=== PATIENT | female | born 1955 | race Caucasian/White ===

== ENCOUNTER 2022-05-15 17:33 | Inpatient (IN) | payer MEDICARE, OTHER ==
[~2022-05-15] VITALS: Ht 160 cm; Wt 87.6 kg
--- NOTE | 2022-05-15 22:00 | NUR ---
PT ARRIVED TO ROOM AROUND 2100 VIA EMS TRANSPORT DIRECT ADMIT. ON LASIX GTT. PT ALERT AND ORIENTED TO SELF BUT IS FORGETFUL NEEDS REMINDERS AND DAUGHTER CUBA AT BEDSIDE REPORTS THIS IS PT BASELINE POST CVA. PT LABORED BREATHING WITH EXPIRATORY WHEEZING AND REPORTING AIRWAYS FEEL TIGHT. NOTIFIED DR. NOBLE AND DR. GARNER WHO PUT IN ORDERS FOR BREATHING TREATMENTS SEE MAR. PT HAS TWO OPEN PRESSURE SORES THAT WERE PRESENT PRE-HOSPITAL ADMISSION BOTH APPEAR TO BE STAGE 2. WOUND CONSULT ORDERED. PT BROKE HER RIGHT UPPER ARM AND HAD SURGICAL REPAIR TO THIS ARM. IT IS PAINFUL WITH MOVEMENT AND SHE CAN NOT TOLERAT BP CUFF OR TOURNIQUETS TO RIGHT UP ARM AT ALL. PT ALSO RECENTLY HAD ABDOMINAL SURGERY HAS MIDLINE SCAR WITH ONE SMALL SCAB LEFT IN UMBILICAL REGION THAT IS DRY. PT AND DAUGHTER ORIENTED TO ROOM AND CALL LIGHT. NO QUESTIONS OR CONCERNS. DOCTOR AIDE AND DR. GARNER CAME AND EVALUATED PT AT BEDSIDE. WILL CONTINUE MONITOR.
[2022-05-15 22:16] LABS: BASOPHILS ABSOLUTE AUTO 0.02 K/mm3 (0.00-0.23); BASOPHILS PERCENT AUTO 1 % (0-2); EOSINOPHILS ABSOLUTE AUTO 0.06 K/mm3 (0.00-0.68); EOSINOPHILS PERCENT AUTO 1 % (0-6); Hematocrit 27.1 % (33.0-51.0); Hemoglobin 9.2 g/dL (11.5-16.0); IMMATURE GRAN ABSOLUTE AUTO 0.01 K/mm3 (0.00-0.10); IMMATURE GRAN PERCENT AUTO 0 % (0-1); LYMPHOCYTES ABSOLUTE AUTO 0.74 K/mm3 (0.84-5.20); LYMPHOCYTES PERCENT AUTO 17 % (21-46); MONOCYTES ABSOLUTE AUTO 0.36 K/mm3 (0.16-1.47); MONOCYTES PERCENT AUTO 8 % (4-13); Mean Corpuscular HGB 32.1 pg (26.0-34.0); Mean Corpuscular HGB Conc 33.9 g/dL (31.5-36.5); Mean Corpuscular Volume 94 fL (80-100); Mean Platelet Volume 8.6 fL (9.1-12.4); NEUTROPHILS ABSOLUTE AUTO 3.12 K/mm3 (1.96-9.15); NEUTROPHILS PERCENT AUTO 72 % (41-73); Platelet Count 237 K/mm3 (150-400); RDW Coefficient Variation 16.3 % (11.7-14.2); Red Blood Cell Count 2.87 M/mm3 (3.80-5.20); White Blood Cell Count 4.31 K/mm3 (4.00-11.30)
[2022-05-15] MEDS ORDERED: AMLO10 PO (22:20)
[2022-05-15] MEDS ORDERED: Aspir 8181 MG PO (22:21)
[2022-05-15] MEDS ORDERED: ZEBUTAL 50-3251 EAC1 PO (22:22)
[2022-05-15] MEDS ORDERED: CALC.25 PO (22:24)
[2022-05-15] MEDS ORDERED: Calcium Carbon500 MG PO (22:26)
[2022-05-15] MEDS ORDERED: CARV25 PO (22:28)
[2022-05-15] MEDS ORDERED: CARB200 PO (22:28)
[2022-05-15] MEDS ORDERED: CELEXA40 M1 PO (22:29)
[2022-05-15] MEDS ORDERED: CHLO25B PO (22:29)
[2022-05-15] MEDS ORDERED: CATAPRES-TTS 11 EAC1 TOP (22:30)
[2022-05-15] MEDS ORDERED: CARDURA2 M1 PO (22:32)
[2022-05-15] MEDS ORDERED: VOLTAREN ARTHRI20 GM (22:32)
[2022-05-15] MEDS ORDERED: TRULICITY0.75 MG/01 (22:33)
[2022-05-15 22:34] LABS: Albumin, Blood 2.6 g/dL (3.4-5.0); Anion Gap 14 mmol/L (6-16); Blood Urea Nitrogen 90 mg/dL (8-24); Bun/Creatinine Ratio 23.5 (12.0-20.0); CO2, Blood 19 mmol/L (21-32); Calcium, Blood 9.4 mg/dL (8.5-10.1); Chloride, Blood 103 mmol/L (98-108); Creatinine, Blood 3.83 mg/dL (0.40-1.00); Glomerular Filtration Rate 12 (60-); Glucose, Blood 117 mg/dL (70-99); Phosphorus, Blood 7.1 mg/dL (2.5-4.9); Potassium, Blood 3.7 mmol/L (3.5-5.5); Sodium, Blood 136 mmol/L (136-145)
[2022-05-15] MEDS ORDERED: [UNRECOGNIZED DRUG - CODE] SC (22:34)
[2022-05-15] MEDS ORDERED: FLUT.05NI (22:35)
[2022-05-15] MEDS ORDERED: FURO80 PO (22:38)
[2022-05-15] MEDS ORDERED: SENNA LAXATIVE8.6 MG PO (22:40)
[2022-05-15] MEDS ORDERED: HYDR100 PO (22:40)
[2022-05-15] MEDS ORDERED: Hair, Skin & N1 EACH PO (22:42)
[2022-05-15] MEDS ORDERED: ISOSORBIDE MONO10 MG PO (22:42)
[2022-05-15] MEDS ORDERED: Percocet 5-3251 EACH PO (22:43)
[2022-05-15] MEDS ORDERED: ONDA4 PO (22:43)
[2022-05-15] MEDS ORDERED: MIRALAX17 GM PO (22:44)
[2022-05-15] MEDS ORDERED: ZOCOR20 MG PO (22:44)
[2022-05-16 02:23] LABS: Source, Urine Clean Catch
[2022-05-16 02:52] LABS: Appearance, Urine Cloudy (Clear); Bilirubin, Urine Neg (Neg); Blood, Urine 5+ (Neg); Glucose Qualitative, Urine Neg (Neg); Ketones, Urine 1+ (Neg); Leukocyte Esterase, Urine 3+ (Neg); Nitrite, Urine Pos (Neg); Protein, Urine 4+ (Neg); Specific Gravity, Urine 1.015 (1.003-1.022); Urobilinogen, Urine NORM (Normal)
[2022-05-16 03:26] LABS: Color, Urine Red (P-Yellow)
[2022-05-16 03:27] LABS: Bacteria Many /hpf; Red Blood Cells, Urine 50-100 /hpf (0-2); Squamous Epithelial Cells Few /hpf (Few)
[2022-05-16 03:28] LABS: Amorphous Light (0-Heavy)
[2022-05-16 03:54] LABS: Hematocrit 24.6 % (33.0-51.0); Hemoglobin 8.2 g/dL (11.5-16.0); Mean Corpuscular HGB 31.2 pg (26.0-34.0); Mean Corpuscular HGB Conc 33.3 g/dL (31.5-36.5); Mean Corpuscular Volume 94 fL (80-100); Platelet Count 249 K/mm3 (150-400); RDW Coefficient Variation 16.2 % (11.7-14.2); RDW Standard Deviation 55.8 fL (35.1-46.3); Red Blood Cell Count 2.63 M/mm3 (3.80-5.20); White Blood Cell Count 4.19 K/mm3 (4.00-11.30)
[2022-05-16 04:11] LABS: Albumin, Blood 2.6 g/dL (3.4-5.0); Anion Gap 12 mmol/L (6-16); Blood Urea Nitrogen 92 mg/dL (8-24); Bun/Creatinine Ratio 23.8 (12.0-20.0); CO2, Blood 22 mmol/L (21-32); Calcium, Blood 9.1 mg/dL (8.5-10.1); Chloride, Blood 103 mmol/L (98-108); Creatinine, Blood 3.87 mg/dL (0.40-1.00); Glomerular Filtration Rate 12 (60-); Glucose, Blood 102 mg/dL (70-99); Phosphorus, Blood 7.1 mg/dL (2.5-4.9); Potassium, Blood 3.7 mmol/L (3.5-5.5); Sodium, Blood 137 mmol/L (136-145)
--- NOTE | 2022-05-16 05:20 | NUR ---
END OF SHIFT SUMMARY NEW ADMIT AT 2100 FROM [facility]. HERE FOR DIALYSIS NEPHROLOGY CONSULTED FOR THIS THIS MORNING. PT CAME ON LASIX GTT BUT THAT WAS DISCONTINUED AND JUST IV PUSH LASIX ORDERED. MANZO REPLACED AND UA SENT. MIDLINE WAS ATTEMPTED BUT NOT SUCCESSFUL. PT HAS TWO PIV IN LEFT ARM. PT HAS PAIN DUE TO BREAK AND SURGERY TO RIGHT UP ARM SO NO TOURNIQUETS OR BP CUFF TO RIGHT UPPER ARM. PT IS ALERT SHE IS ORIENTED TO SELF THE YEAR FAMILY AND FOLLOWING BUT DAUGHTER REPORTS SHE IF FORGETFUL AND NEEDS FREQUENT REMINDERS. WILL CONTINUE TO MONITOR. WILL GIVE BEDSIDE REPORT TO ONCOMING RN.
--- NOTE | 2022-05-16 08:00 | NUR ---
ASSUMED CARE PT IS ALERT AND ORIENTED X4. DAUGHTER AT BEDSIDE DISCUSSING WITH DR. JONES ABOUT CAREPLAN. SPO2 >92% ON 2L NC; MAP >65 W/ SBP IN THE 160-170'S. ALBUMIN AND LASIX RUNNING. PT HAS WHEEZES HEARD AFTER LYING PT DOWN FOR BOOST. MANZO CATHETER PATENT AND DRAINING TO GRAVITY. PT'S RIGHT ARM IS FRAGILE AND PAINFUL WITH ANY STIMULATION D/T RECENT HUMERUS FX CORRECTION. POSSIBLE SMALL MURMUR AUSCULTATED OVER PULMONIC/HERBS/TRICUSPID.
[2022-05-16 10:57] LABS: Creatine Kinase MB 2.3 ng/mL (0.0-3.6); Creatine Kinase MB Index 7.2 (0.0-4.0); Percent Saturation 32.9 % (15.0-50.0)
--- NOTE | 2022-05-16 18:09 | NUR ---
SHIFT SUMMARY A/OX3, FORGETFUL. CURRENTLY ON 2L VIA NC, CONT BIOX IN PLACE WITH SATS GREATER THAN 92. 2P ASSIST FOR REPOSITIONING. PG TO JAQUELINE. C/O PAIN TO BOTTOM, MEDICATED PER EMAR X1. MANZO CATH PATENT AND DRAINING TO GRAVITY. TELE SR 60-70S. VSS, NO ACUTE CHANGES AT THIS TIME. BED IN LOWEST POSITION WITH CALL LIGHT IN REACH. WILL CONTINUE TO MONITOR AND REPORT TO ONCOMING RN.
[2022-05-17 06:10] LABS: International Normalized Ratio 1.04; Prothrombin Time Results 10.9 Sec (9.7-11.5)
--- NOTE | 2022-05-17 06:31 | NUR ---
SHIFT SUMMARY - NO ACUTE CHANGES THROUGHOUT THE NIGHT. DAUGHTER SLEPT OVER LAST NOC - VERY SUPPORTIVE OF HER MOTHER. PT DID WAKE UP WITH SOB/ANXIETY - DAUGHTER INSTRUCTING HER ON CALMING TECHNIQUES. PT WORE HER CPAP THROUGHOUT MOST OF THE NIGHT - PT PREFERS THE CPAP TO NC OXYGEN. PT MEDICATED X1 WITH ULTRAM FOR BACK PAIN WITH GOOD RELIEF. PT HAS SLEPT THROUGHOUT MOST OF THE NIGHT. EDUCATED ON DR, CONSULT FOR DIALYSIS PLACEMENT TO PT AND DAUGHTER - VERBALIZED UNDERSTANDING. PT'S SKIN COLOR IS PALE, VSS - SEE VITALS. MEDICATED X1 WITH HYDRALAZINE IV - SEE VS FOR FOLLOW UP. CALL LIGHT WITHIN REACH. BED IN LOW POSITION. PT NPO FOR ANTICIPATED DIALYSIS CATHETER PLACEMENT TODAY. WILL CONTINUE TO MONITOR UNTIL AM SHIFT CHANGE.
[2022-05-17 09:11] LABS: Hemoglobin 8.1 g/dL (11.5-16.0); Mean Corpuscular HGB 31.8 pg (26.0-34.0); Mean Corpuscular HGB Conc 33.8 g/dL (31.5-36.5); Mean Corpuscular Volume 94 fL (80-100); Mean Platelet Volume 9.4 fL (9.1-12.4); Platelet Count 243 K/mm3 (150-400); RDW Coefficient Variation 16.5 % (11.7-14.2); RDW Standard Deviation 56.7 fL (35.1-46.3); Red Blood Cell Count 2.55 M/mm3 (3.80-5.20); White Blood Cell Count 5.29 K/mm3 (4.00-11.30)
[2022-05-17 09:34] LABS: Albumin, Blood 3.1 g/dL (3.4-5.0); Anion Gap 14 mmol/L (6-16); Blood Urea Nitrogen 91 mg/dL (8-24); Bun/Creatinine Ratio 23.4 (12.0-20.0); CO2, Blood 22 mmol/L (21-32); Calcium, Blood 9.3 mg/dL (8.5-10.1); Chloride, Blood 102 mmol/L (98-108); Creatinine, Blood 3.89 mg/dL (0.40-1.00); Glomerular Filtration Rate 12 (60-); Glucose, Blood 115 mg/dL (70-99); Phosphorus, Blood 7.1 mg/dL (2.5-4.9); Potassium, Blood 3.7 mmol/L (3.5-5.5); Sodium, Blood 138 mmol/L (136-145)
--- NOTE | 2022-05-17 19:47 | NUR ---
END OF SHIFT SUMMARY: PATIENT SHOWED IMPROVEMENT IN HER MENTATION, COMFORT, AND BREATHING THROUGHOUT THE SHIFT. PATIENT ENDED THE SHIFT RESTED, SITTING UP IN BED, AND ENGAGING WITH THE RN AND FAMILY. PATIENT REPORTED IMPROVEMENT IN HER SHOULDER, BACK AND CHEST PAIN AFTER SOME REST AND USE OF THE HEATING PAD. PATIENT DENIED NEED FOR PRN MEDICATIONS RELATED TO PAIN CONTROL. PATIENT STARTED THE SHIFT RELYING ON HER CPAP (WITH 4L BLEED IN) TO HELP WITH HER BREATHING COMFORT (SPO2 90-93%). BY THE END OF THE SHIFT, PATIENT WAS SITTING UP IN BED EATING DINNER ON 4L VIA NC (SPO2 94-96%). PATIENT REPORTED INCREASED COMFORT WITH BREATHING. PATIENT HAD A URINE OUTPUT OF DARK CARTER URINE OF 675 ML DURING THE DAY SHIFT. EDEMA REMAINED UNCHANGED IN ANKLES AND LEGS. PATIENT STARTED THE SHIFT HIGHLY ANXIOUS ABOUT HER STAY IN THE HOSPITAL, PLAN OF CARE AND BREATHING. MEDICATED ONE TIME WITH PRN ATIVAN. PATIENT WAS ABLE TO GET A LONG NAP THIS AFTERNOON. BY THE EVENING, PATIENT WAS RELAXED AND CALMLY TALKING WITH THE RN. PATIENT UNDERSTANDING OF NEED TO PUSH THE PERMA-CATH PLACEMENT TO TOMORROW. DAUGHTER CUBA AND PATIENT'S BROTHER AT THE BEDSIDE MUCH OF THE DAY.
--- NOTE | 2022-05-18 05:32 | NUR ---
PATIENT WAS VERY ANXIOUS AROUND HS. SHE BEGAN HYPERVENTILATING, THEN SITTING UP AND ROCKING FORWARD IN HER BED BECAUSE SHE THOUGHT SHE WASN'T GETTING ANY AIR. RT WAS CALLED WHO ADJUSTED HER CPAP AND INCREASED HER O2 THAT WAS BLENDED INTO THE MACHINE. 0.5MG ATIVAN WAS GIVEN WITH HER TRAMADOL FOR RIGHT UPPER ARM AND SHOULDER PAIN. ALL EFFORTS WORKED TO RESOLVE THE PROBLEM, AND THE PATIENT SLEPT WELL SHORTLY AFTER. DAUGHTER IS IN THE ROOM WITH [employer], AND IS VERY HELPFUL AND SUPPORTIVE. PATIENT HAS BEEN NPO SINCE BEFORE 2400 IN ANTICIPATION OF HER DIALYSIS CATH PLACEMENT.
[2022-05-18 06:06] LABS: Albumin, Blood 3.2 g/dL (3.4-5.0); Anion Gap 13 mmol/L (6-16); Blood Urea Nitrogen 94 mg/dL (8-24); Bun/Creatinine Ratio 24.4 (12.0-20.0); CO2, Blood 22 mmol/L (21-32); Calcium, Blood 9.2 mg/dL (8.5-10.1); Chloride, Blood 102 mmol/L (98-108); Creatinine, Blood 3.85 mg/dL (0.40-1.00); Glomerular Filtration Rate 12 (60-); Glucose, Blood 126 mg/dL (70-99); Phosphorus, Blood 7.2 mg/dL (2.5-4.9); Potassium, Blood 3.7 mmol/L (3.5-5.5); Sodium, Blood 137 mmol/L (136-145)
[2022-05-18 08:57] LABS: SARS-Cov-2 (COVID-19) PCR, MMC NEGATIVE (NEGATIVE)
[2022-05-18 14:12] LABS: A/G RATIO 1.3 (0.7-1.7); ALPHA-1-GLOBULIN 0.4 g/dL (0.0-0.4); ALPHA-2-GLOBULIN 0.7 g/dL (0.4-1.0); BETA GLOBULIN 0.6 g/dL (0.7-1.3); GAMMA GLOBULIN 0.7 g/dL (0.4-1.8); GLOBULIN, TOTAL 2.3 g/dL (2.2-3.9); M-SPIKE Not Observed g/dL (Not Observed); PROTEIN, TOTAL, SERUM 5.3 g/dL (6.0-8.5)
--- NOTE | 2022-05-18 16:02 | NUR ---
SHIFT SUMMARY PT ALERT AND ORIENTED, CALLS APPROPRIATELY. PT DOWN FOR DIALYSIS CATHETER PLACEMENT TODAY. PLACED TO RCW. PT COMPLETED FIRST ROUND OF HD TODAY FOR 2 HOURS. PT TOLERATED PROCEDURE, 1500ML REMOVED. SCHEDULED FOR HD TOMORROW WELL. PT ALTERNATING BETWEEN CPAP AND NASAL CANULA DURING SHIFT. NO C/O PAIN, MEDICATED FOR ANXIETY X [address] MANZO [address], SMALL AMOUNT OF ELISA URINE IN BAG. NO NEEDS VOICED AT THIS TIME. CALL LIGHT WITHIN REACH.
[2022-05-19 06:44] LABS: Albumin, Blood 2.7 g/dL (3.4-5.0); Anion Gap 11 mmol/L (6-16); Blood Urea Nitrogen 59 mg/dL (8-24); Bun/Creatinine Ratio 21.5 (12.0-20.0); CO2, Blood 27 mmol/L (21-32); Chloride, Blood 100 mmol/L (98-108); Creatinine, Blood 2.74 mg/dL (0.40-1.00); Glomerular Filtration Rate 18 (60-); Glucose, Blood 105 mg/dL (70-99); Phosphorus, Blood 4.8 mg/dL (2.5-4.9); Potassium, Blood 3.6 mmol/L (3.5-5.5); Sodium, Blood 138 mmol/L (136-145)
--- NOTE | 2022-05-19 18:58 | NUR ---
Shift Summary A/Ox2-3, pleasant, anxious d/t difficulty breathing. Had dialysis today, session was shortened d/t anxiety. Called RT for breathing treatment while having panic attack in dialysis, bipap was placed and patient was able to calm down afterward. Coarse crackles to R lung, dim at bilat bases, clear L lung. hosiery bagger Hannah placed new orders. Wound photo updated in chart. 1-2p turn q2. Patient does not like to lie flat and would often switch on and off between cpap/bipap and nc. Poor appetite. Hypertension today, meds given with improvement of blood pressure. Medicated for back pain and headache with tylenol with good effect. Restless in bed. Had two bowel movements today.
--- NOTE | 2022-05-20 04:25 | NUR ---
Pt A/Ox3 this shift. Overnight pt had some c/o generalized pain, PRN tylenol given x1. pt did have bouts of panic attacks induced by repostioning in bed. short story writer and daughter encouraged deep breathing techniques. CPAP utilzied overnight on 5L. Cotton has moderate output with golden/brown colored urine. Plan to go to dialysis again today.
[2022-05-20 07:11] LABS: HBSAG SCREEN Negative (Negative); HCV AB <0.1 (0.0-0.9); HEP A AB, IGM Negative (Negative); HEP B CORE AB, IGM Negative (Negative)
[2022-05-20 08:25] LABS: Albumin, Blood 2.8 g/dL (3.4-5.0); Anion Gap 8 mmol/L (6-16); Blood Urea Nitrogen 38 mg/dL (8-24); Bun/Creatinine Ratio 19.2 (12.0-20.0); CO2, Blood 30 mmol/L (21-32); Calcium, Blood 9.3 mg/dL (8.5-10.1); Chloride, Blood 104 mmol/L (98-108); Creatinine, Blood 1.98 mg/dL (0.40-1.00); Glomerular Filtration Rate 27 (60-); Glucose, Blood 106 mg/dL (70-99); Phosphorus, Blood 3.5 mg/dL (2.5-4.9); Potassium, Blood 3.7 mmol/L (3.5-5.5); Sodium, Blood 142 mmol/L (136-145)
[2022-05-20 09:54] LABS: Hematocrit 25.9 % (33.0-51.0); Hemoglobin 8.4 g/dL (11.5-16.0); Mean Corpuscular HGB Conc 32.4 g/dL (31.5-36.5); Mean Corpuscular Volume 96 fL (80-100); Mean Platelet Volume 9.5 fL (9.1-12.4); Platelet Count 249 K/mm3 (150-400); RDW Coefficient Variation 16.9 % (11.7-14.2); RDW Standard Deviation 58.4 fL (35.1-46.3); Red Blood Cell Count 2.71 M/mm3 (3.80-5.20); White Blood Cell Count 5.71 K/mm3 (4.00-11.30)
[2022-05-20 16:34] LABS: Automated BF RBC Count 0.004 M/mm3 (0-0); Automated BF WBC Count 0.726 K/mm3 (0-999)
[2022-05-20 16:37] LABS: Body Fluid WBC Count 726 /mm3 (0-999)
[2022-05-20 16:38] LABS: RBC Count, Body Fluid 4000 /mm3 (0-0)
[2022-05-20 17:16] LABS: Total Cell Count, Body Fluid 100
[2022-05-20 17:18] LABS: Appearance, Body Fluid Hazy (Clear); Color, Body Fluid Yellow (None-Yellow)
--- NOTE | 2022-05-20 19:21 | NUR ---
SHIFT SUMMARY; PATIENT STARTED THE SHIFT HAVING AN ANXIETY ATTACK. IT TOOK 45 MINUTES FOR RT, HER DAUGHTER AND THIS RN TO CALM HER DOWN ENOUGH TO TAKE HER MEDICATIONS AND TO ALLOW RT TO REMOVE HER CPAP TO TAKE HER AM MEDICATION. SHE WENT TO DIALYSIS TODAY AND THEY REMOVED 7 LITERS. SHE HAD A THORACENTESIS AND 1 LITER FLUID WAS REMOVED. PATIENT TOLERATED PROCEDURE WELL PER REPORT. BACK TO ROOM PATIENT REMAINED ON 5 LITERS NASAL CANNULA AND WAS ABLE TO CARRY ON A FULL CONVERSATION WITH HER DAUGHTER. SHE REMAINS ANXIOUS BUT IS ABLE TO CALM HERSELF DOWN WITH HELP FROM HER DAUGHTER.
--- NOTE | 2022-05-21 04:32 | NUR ---
SHIFT SUMMARY Pt A/Ox4 and call light appropriate this shift. Overnight pt had minimal anxiety. Pt transferred to the bedside commode utilizing 2 assist and walker. Pt repositioned in bed as tolerated. Utilized 4L NC and 4L CPAP when asleep. Pt stated her SOB had improved compared to previous days.
[2022-05-21 09:48] LABS: Hematocrit 27.7 % (33.0-51.0); Hemoglobin 8.8 g/dL (11.5-16.0); Mean Corpuscular HGB 30.6 pg (26.0-34.0); Mean Corpuscular HGB Conc 31.8 g/dL (31.5-36.5); Mean Corpuscular Volume 96 fL (80-100); Mean Platelet Volume 9.2 fL (9.1-12.4); Platelet Count 278 K/mm3 (150-400); RDW Coefficient Variation 16.7 % (11.7-14.2); RDW Standard Deviation 59.7 fL (35.1-46.3); Red Blood Cell Count 2.88 M/mm3 (3.80-5.20); White Blood Cell Count 5.65 K/mm3 (4.00-11.30)
[2022-05-21 12:49] LABS: Albumin, Blood 2.4 g/dL (3.4-5.0); Anion Gap 6 mmol/L (6-16); Blood Urea Nitrogen 25 mg/dL (8-24); Bun/Creatinine Ratio 13.7 (12.0-20.0); CO2, Blood 31 mmol/L (21-32); Calcium, Blood 8.5 mg/dL (8.5-10.1); Chloride, Blood 105 mmol/L (98-108); Creatinine, Blood 1.83 mg/dL (0.40-1.00); Glomerular Filtration Rate 30 (60-); Glucose, Blood 175 mg/dL (70-99); Phosphorus, Blood 2.5 mg/dL (2.5-4.9); Potassium, Blood 3.6 mmol/L (3.5-5.5); Sodium, Blood 142 mmol/L (136-145)
--- NOTE | 2022-05-21 17:36 | NUR ---
SHIFT SUMMARY; PATIENT CONTINUES TO IMPROVE SINCE THIS RN HAD HER A PATIENT YESTERDAY. PATIENT IS AO X 4. DAUGHTER AT BEDSIDE. PATIENT IS ON 4 LITERS O2 VIA NASAL CANNULA. SHE HAS HAD NO EPISODES OF ANXIETY TODAY. FAMILY DID REQUEST A SLEEP AID FOR HER HOWEVER AFTER DOCTOR ORDERS MIKEYDONE DAUGHTER HAS CONCERNS AND DOES NOT WANT HER MOM TO TAKE IT. PATIENT RECEIVED DIALYSIS AGAIN TODAY AND 3 LITERS WAS REMOVED. PATIENT IS EXPERIENCING LESS PAIN ON HER RIGHT SIDE WHERE THE THORACENTESIS WAS PLACED. SHE ASKS FOR TYLENOL FOR PAIN ON HER BOTTOM FROM SITTING. WILL REMAIN AVAILABLE FOR THIS PATIENT FOR ANY WANTS OR NEEDS THAT COME UP PRIOR TO REPORT AND HAND OFF TO [facility] SHIFT RN. PATIENT IS ABLE TO MOVE FROM BEDSIDE TO COMMODE WITH A ONE PERSON STAND BY ASSIST. PER DAUGHTER SHE WILL BE LEAVING IN THE AFTERNOON TOMORROW AND WOULD LIKE TO SPEAK WITH METEOROLOGY FACULTY MEMBER ABOUT HOW HER MOM WILL GET HOME AFTER DISCHARGE AND THEY ARE WANTING PLACEMENT IN [facility]. WILL REMAIN AVAILABLE FOR THIS PATIENT FOR ANY WANTS OR NEEDS UNTIL REPORT AND HAND OFF AT SHIFT CHANGE.
[2022-05-22 06:53] LABS: Albumin, Blood 2.5 g/dL (3.4-5.0); Anion Gap 7 mmol/L (6-16); Blood Urea Nitrogen 28 mg/dL (8-24); Bun/Creatinine Ratio 12.4 (12.0-20.0); CO2, Blood 31 mmol/L (21-32); Chloride, Blood 104 mmol/L (98-108); Creatinine, Blood 2.25 mg/dL (0.40-1.00); Glomerular Filtration Rate 23 (60-); Glucose, Blood 87 mg/dL (70-99); Phosphorus, Blood 3.2 mg/dL (2.5-4.9); Potassium, Blood 3.7 mmol/L (3.5-5.5); Sodium, Blood 142 mmol/L (136-145)
--- NOTE | 2022-05-22 07:34 | NUR ---
SHIFT SUMMARY: PATIENT HAD A GOOD NIGHT AND SLEPT WELL WITH CPAP IN PLACE. WOKE THIS AM REPORTING EPIGASTRIC AND R MID BACK PAIN AT THORACENTESIS SITE. BP WAS ELEVATED WITH HR IN THE 60'S. TELI IS NSR WITH NO EVENTS THROUGH THE NIGHT. TYLENOL AND ICE THERAPY ARE USED WITH FAIR EFFECT.
--- NOTE | 2022-05-22 11:20 | NUR ---
10:15 DIALYSIS NURSE CALLED. SERGIO PT C/O PAIN IN RT ARM AND BOTTOM. ALSO RIB/LUNG CHEST ON RT. CALLED DR NOBLE. UPDATED ON PAIN AND ON RT LUNG BEING VERY LITTLE AIR MOVEMENT, VERY DIM. ALSO THE PAIN. HE TO GO SEE PT. REQUEST PAIN MED AND ASKED IF POSS XRAY? HE TO ADVISE.
--- NOTE | 2022-05-22 18:44 | NUR ---
PT HAD DIALYSIS TODAY. SOME TIRED AFTER. GAVE B/P MEDS THIS AM PRIOR. THEN ALSO THIS AFTERNOON GAVE AGAIN. PT DAUGHTER DID GO HOME THIS EARLY AFTERNOON. DISCUSSED RT LUNG TIGHT, DIM T/O. ASKED FOR AND RECEIVED ORDER FOR XRAY. PT TO HAVE THORACENTISIS TOMORROW. DOES NOT NEED TO BE NPO. STOPPED LOVENOX. PT STATES FEELING PRETTY DECENT TODAY/ NO OTHER CONCERNS NOTED TODAY. BED IN LOW POSITION, CALL LITE IN REACH, CALLS APROP
--- NOTE | 2022-05-23 06:49 | NUR ---
SHIFT SUMMARY: PATIENT IS UP TO THE BSC FOR A SMALL LOOSE BM. REPORTING INCREASED PAIN IN RIGHT ARM WHEN UP. PATIENT REQESTS A SLING. DR LYNN WAS NOTIFIED AND ORDER WAS OBTAINED. OXYCODONE WAS GIVEN FOR PAIN WITH GOOD EFFECT. BP WAS ELEVATED THIS AM, 175/68, PRN HYDRALAZINE WAS GIVEN. SOB WITH ACTIVITY BUT ABLE TO CALM SELF WHEN BACK IN BED.
--- NOTE | 2022-05-23 12:17 | NUR ---
TYSHAWN MANZO AND NEURO CHECKS T.O. FROM DR. NOBLE TO TYSHAWN MANZO AFTER BLADDER TRAINING. OK TO TYSHAWN NEURO CHECKS WELL.
--- NOTE | 2022-05-23 17:05 | NUR ---
Shift Summary A/Ox3, forgetful. Had thoracentesis of R chest, some pain relieved with PRN oxycodone. Up with 1p FWW and gaitbelt. Sitting up in chair for meals. Calling appropriately for needs. Med sling on R arm with OOB. Difficulty applying mepilex to coccyx, barrier cream applied and TQ2. Patient is actually independent with turning self q2h. Tele: SR [id number]. Bladder training started this shift, will d/c beckwith before end of shift since patient is able to ambulate to bathroom without fatigue and severe dyspnea. Continuous biox in place. Dialysis planned for tomorrow.
--- NOTE | 2022-05-24 06:29 | NUR ---
SHIFT SUMMARY: PT A/O X 4, FORGETFUL AT TIMES. 1 ASSIST WITH WALKER AND GB FOR SAFETY. PT PAIN MANAGED THROUGH THE NIGHT WITH NO COMPLAINTS OF PAIN. PT ABLE TO LIFT R ARM BUT DOES NOT HAVE FULL RANGE OF MOTION. NO CALLS FROM TELE MONITOR AND IN NSR. PT DID NOT HAVE ANY URINE OUTPUT THROUGH THE NIGHT. BLADDER SCAN REVEALED 126 MLS THIS MORNING AT 6 AM. PT DENIES PAIN OR URGENCY. PT HAD NO COMPLAINTS OR NEEDS OTHER THAN NEEDING TO BE REPOSITIONED FOR COMFORT THROUGH THE NIGHT. USED CPAP WHILE ASLEEP. DIALYSIS SCHEDULED FOR THIS MORNING.
--- NOTE | 2022-05-24 17:26 | NUR ---
Shift Summary A/O, a little forgetful, up with SBA/FWW to and from bed to chair. Medicated for buttock/back pain x 1 with good effect. Up to chair for lunch and dinner. Dialyzed today, tolerated well. Anxious to dc and be closer to family. 4L NC continuous, desats on RA with activity to 87-88%. No acute changes.
--- NOTE | 2022-05-25 18:10 | NUR ---
PATIENT IS ALERT AND ORIENTED AND COOPERATIVE WITH CARE. NO DIALYSIS TODAY. OXYGEN HAS BEEN TITRATED DOWN FROM 4L TO 1L WITH OXYGEN SATURATION OF 96%. PATIENT SHOWERED THIS MORNING. WORKED WITH PT THIS MORNING. PT TOOK OFF THE RIGHT ARM SLING. MEDICATED FOR RIGHT ARM PAIN PER EMAR. WILL CONTINUE TO MONITOR
--- NOTE | 2022-05-26 03:19 | NUR ---
SHIFT SUMMARY NO OVERNIGHT EVENTS. PT ABLE TO MAKE NEEDS KNOWN. PT WILL GO TO HD TODAY, R PERMACAT SITE C/D/I. PT AMBULATED TO BATHROOM TO URINATE. CREAM APPLIED TO COCCYX WOUND. DENIES ANY SOB/CP/N/V. CALL LIGHT IN REACH. WILL CONTINUE TO MONITOR.
[2022-05-26 06:17] LABS: Albumin, Blood 2.5 g/dL (3.4-5.0); Anion Gap 7 mmol/L (6-16); Blood Urea Nitrogen 28 mg/dL (8-24); Bun/Creatinine Ratio 9.5 (12.0-20.0); CO2, Blood 33 mmol/L (21-32); Calcium, Blood 8.8 mg/dL (8.5-10.1); Chloride, Blood 99 mmol/L (98-108); Creatinine, Blood 2.96 mg/dL (0.40-1.00); Glomerular Filtration Rate 17 (60-); Glucose, Blood 85 mg/dL (70-99); Phosphorus, Blood 3.9 mg/dL (2.5-4.9); Potassium, Blood 3.6 mmol/L (3.5-5.5); Sodium, Blood 139 mmol/L (136-145)
--- NOTE | 2022-05-26 09:26 | NUR ---
PATIENT TO DIALYSIS VIA BED, NO DISTRESS, ALERT AND ORIENTED, FORGETFUL AT TIMES, MAKES NEED KNOWN, NO DISTRESS THIS AM
--- NOTE | 2022-05-26 14:07 | NUR ---
Spoke with RN Austin Munoz prior to Pt visit and discussed case. Pt to D/C on Sunday to assisted Living and will need POLST completed per facility's requirement. Pt resting in bed and is A&O. Gentle review on plan of care. Pt reports tolerating dialysis and states it does wipe her out. Pt is looking forward to D/C to facility to be closer to her family. Pt reports her daughter is supportive. Discussed completing POLST with Pt being in agreement. Educated on life sustaining treatments including risk factos and implications of CPR. Discussed each section to complete and educated on choices. Assisted Pt in completing POLST. Palliative Care will remain available.
--- NOTE | 2022-05-27 03:57 | NUR ---
SHIFT SUMMARY NO OVERNIGHT EVENTS, NO CHANGE IN PT CONDITION. PT REPORTS INCREASED PAIN IN RIGHT ARM, ADMINISTERED PRN TYLENOL AND OXYCODONE THAT WAS EFFECTIVE. NO URINE THIS SHIFT. USING CPAP AT NIGHT, 1L02 WHILE AWAKE. PT USES CALL LIGHT. WILL CONTINUE TO MONITOR.
--- NOTE | 2022-05-27 16:44 | NUR ---
PT HAS BEEN AOX4 AND COOPERATIVE OF CARE. PT WAS UP IN CHAIR FOR MEAL AND DOING WELL. NO DISTRESS NOTED AT THIS TIME AND PT ON ROOM AIR O2 SATING 96%. CALL LIGHT WITHIN REACH WILL CONTINUE TO MONITOR.
--- NOTE | 2022-05-28 04:35 | NUR ---
NIGHTSHIFT SUMMARY No acute changes to patient status. Patient weaned to RA, used CPAP during night. Calls for SBA to bathroom, patient ambulates independently to BR using walker. Denied pain/discomfort, slept comfortably all night, arouses easily to voice. Permacath right upper chest, dressing CDI. Extended dwell catheter LUE, flushes/patent, does not draw. Will continue plan of care, awaiting discharge planning.
[2022-05-28 05:56] LABS: BASOPHILS ABSOLUTE AUTO 0.03 K/mm3 (0.00-0.23); BASOPHILS PERCENT AUTO 1 % (0-2); EOSINOPHILS ABSOLUTE AUTO 0.15 K/mm3 (0.00-0.68); EOSINOPHILS PERCENT AUTO 3 % (0-6); Hematocrit 28.6 % (33.0-51.0); Hemoglobin 9.3 g/dL (11.5-16.0); IMMATURE GRAN ABSOLUTE AUTO 0.02 K/mm3 (0.00-0.10); IMMATURE GRAN PERCENT AUTO 0 % (0-1); LYMPHOCYTES ABSOLUTE AUTO 1.15 K/mm3 (0.84-5.20); LYMPHOCYTES PERCENT AUTO 23 % (21-46); MONOCYTES ABSOLUTE AUTO 0.56 K/mm3 (0.16-1.47); MONOCYTES PERCENT AUTO 11 % (4-13); Mean Corpuscular HGB 31.7 pg (26.0-34.0); Mean Corpuscular HGB Conc 32.5 g/dL (31.5-36.5); Mean Corpuscular Volume 98 fL (80-100); Mean Platelet Volume 9.7 fL (9.1-12.4); NEUTROPHILS PERCENT AUTO 62 % (41-73); Platelet Count 271 K/mm3 (150-400); RDW Standard Deviation 60.6 fL (35.1-46.3); Red Blood Cell Count 2.93 M/mm3 (3.80-5.20); White Blood Cell Count 5.01 K/mm3 (4.00-11.30)
[2022-05-28 06:10] LABS: Albumin, Blood 2.8 g/dL (3.4-5.0); Anion Gap 8 mmol/L (6-16); Blood Urea Nitrogen 28 mg/dL (8-24); Bun/Creatinine Ratio 10.1 (12.0-20.0); CO2, Blood 30 mmol/L (21-32); Calcium, Blood 9.2 mg/dL (8.5-10.1); Chloride, Blood 103 mmol/L (98-108); Creatinine, Blood 2.78 mg/dL (0.40-1.00); Glomerular Filtration Rate 18 (60-); Glucose, Blood 82 mg/dL (70-99); Magnesium, Blood 2.1 mg/dL (1.6-2.4); Phosphorus, Blood 3.8 mg/dL (2.5-4.9); Potassium, Blood 3.8 mmol/L (3.5-5.5); Sodium, Blood 141 mmol/L (136-145)
--- NOTE | 2022-05-28 16:54 | NUR ---
SHIFT SUMMARY PT AWAKE AND OOB AT START OF SHIFT, AMBULATING TO BTHRM. PT ENCOURAGED TO USE CALL LT FOR SBA, BUT PT REPORTING THAT SHE DOES NOT LIKE TO WAIT. AM MEDS GIVEN WITH BREAKFAST. PT TAKEN DOWN TO DIALYSIS AT 0900, RETURNING AT 1300. PT'S IN RM WAITING WHEN PT RETURNED. PT ABLE TO EAT LUNCH AND THEN HAVE HOME O2 EVAL DONE. PT ON RA ALL DAY AND DID NOT NEED O2 TO GO HOME ON EITHER. PT UP TO BTHRM INDEPENDENTLY. ASSISTED BACK INTO BED. CURRENTLY RESTING QUIETLY WITH EYES CLOSED. RESP E/U. CALL LT IN REACH. PT TO D/C TO HOME EARLY IN AM.
--- NOTE | 2022-05-29 04:45 | NUR ---
NIGHTSHIFT SUMMARY No acute changes to patient status, patient AOx4, took a shower before bed. Requested pain pill for right arm pain. PRN effective for pain. CPAP applied, patient slept comfortably all night. Vital signs stable. Plan to discharge home in AM.
[2022-05-29] MEDS ORDERED: LISI20 PO (08:31)
[2022-05-29] MEDS ORDERED: RENVELA800 MG PO (08:32)
--- NOTE | 2022-05-29 10:49 | NUR ---
PT DISCHARGED FROM THE UNIT. PG REMOVED. [facility]STRUCTIONS [facility] TO [facility]. REPORT CALLED. PT LEFT VIA WHEEL CHAIR.
== END 2022-05-29 10:00 | disposition home or self-care (01) | DRG 673 ==
LOC: MEDS 17:33 → ICUE 17:33 → MEDS 17:33 → ICUE 05-16 08:46 → MEDS 05-16 10:28
PROVIDERS: Family Medicine; Internal Medicine; Internal Medicine Nephrology; Radiology Diagnostic Radiology; ADMIT Student in an Organized Health Care Education/Training Program
PROC: 0JH63XZ Insertion of Tunneled Vascular Access Device into Chest Subcutaneous Tissue and Fascia, Percutaneous Approach (ICD-10-PCS; principal; 2022-05-18)
PROC: 02HV33Z Insertion of Infusion Device into Superior Vena Cava, Percutaneous Approach (ICD-10-PCS; 2022-05-18)
PROC: B5181ZA Fluoroscopy of Superior Vena Cava using Low Osmolar Contrast, Guidance (ICD-10-PCS; 2022-05-18)
PROC: 5A1D70Z Performance of Urinary Filtration, Intermittent, Less than 6 Hours Per Day (ICD-10-PCS; 2022-05-18)
PROC: 0W9930Z Drainage of Right Pleural Cavity with Drainage Device, Percutaneous Approach (ICD-10-PCS; 2022-05-20)
PROC: 0W9930Z Drainage of Right Pleural Cavity with Drainage Device, Percutaneous Approach (ICD-10-PCS; 2022-05-23)
DX: N17.9 Acute kidney failure, unspecified (principal); I50.33 Acute on chronic diastolic (congestive) heart failure; J96.01 Acute respiratory failure with hypoxia; I13.2 Hypertensive heart and chronic kidney disease with heart failure and with stage 5 chronic kidney disease, or end stage renal disease; J91.8 Pleural effusion in other conditions classified elsewhere; Z20.822 Contact with and (suspected) exposure to COVID-19; G47.33 Obstructive sleep apnea (adult) (pediatric); N18.6 End stage renal disease; N25.81 Secondary hyperparathyroidism of renal origin; F32.A Depression, unspecified; E66.01 Morbid (severe) obesity due to excess calories; G31.84 Mild cognitive impairment of uncertain or unknown etiology; E83.39 Other disorders of phosphorus metabolism; G40.909 Epilepsy, unspecified, not intractable, without status epilepticus; D63.1 Anemia in chronic kidney disease; Z99.89 Dependence on other enabling machines and devices; Z86.73 Personal history of transient ischemic attack (TIA), and cerebral infarction without residual deficits; Z90.49 Acquired absence of other specified parts of digestive tract; Z90.89 Acquired absence of other organs; Z98.890 Other specified postprocedural states; Z79.82 Long term (current) use of aspirin; Z79.899 Other long term (current) drug therapy
CPT/HCPCS: 32555; 36415; 36558; 71045; 71046; 76770; 76937; 77001; 80069; 80074; 81001; 82330; 82550; 82553; 82570; 82728; 82947; 83540; 83550; 83605; 83735; 83880; 83970; 84145; 84156; 84165; 84540; 85025; 85027; 85610; 86317; 87070; 87086; 87205; 89051; 93005; 93010; 93306; 94640; 94660; 94664; 94760; 94761; 94762; 97110; 97116; 97162; 97166; 97530; 97535; 99152; 99153; A9270; C1750; C1751; C1769; C1894; J0360; J0696; J1170; J1644; J1650; J1940; J3010; J7030; J7050; P9047; Q5106; U0004